=== PATIENT | female | born 1950 | race Caucasian/White ===

== ENCOUNTER → 2016-09-16 | Outpatient (REF) | payer MEDICARE, OTHER | LOC: M SFHCLERA 08:47 | PROVIDERS: ATTEND Family Medicine | DX: R76.8 Other specified abnormal immunological findings in serum (principal) | CPT/HCPCS: 85652; 86038; 86140; 86431; G0463 ==

== ENCOUNTER 2017-11-02 10:01 | Emergency (ER) | payer OTHER, MEDICARE ==
[2017-11-02 10:59] LABS: BASO # 0.1 10^3/uL (0.0-0.2); BASO % 0.4 % (0.0-1.0); EOS # 0.2 10^3/uL (0.0-0.50); HEMATOCRIT 46.3 % (36.0-47.0); HEMOGLOBIN 15.1 g/dl (12.0-15.5); IMMATURE GRANULOCYTE % 0.3 % (0-3.0); LYMPH # 2.9 10^3/uL (1.5-4.5); LYMPH % 25.2 % (24.0-44.0); MEAN CORPUSCULAR HGB CONC 32.6 g/dl (32.0-36.5); MEAN CORPUSCULAR VOLUME 91.9 fl (80.0-96.0); MONO # 0.6 10^3/uL (0.0-0.8); MONO % 5.3 % (0.0-5.0); NEUTROPHILS # 7.6 10^3/uL (1.8-7.7); NEUTROPHILS % 66.8 % (36.0-66.0); PLATELET COUNT, AUTOMATED 248 10^3/uL (150-450); RED BLOOD COUNT 5.04 10^6/uL (4.00-5.40); RED CELL DISTRIBUTION WIDTH 12.8 % (11.5-14.5); WHITE BLOOD COUNT 11.4 10^3/uL (4.0-10.0)
[2017-11-02 11:09] LABS: INR 1.01; PROTHROMBIN TIME 13.4 SECONDS (12.4-14.5)
[2017-11-02 11:10] LABS: PARTIAL THROMBOPLASTIN TIME 25.5 SECONDS (26.8-37.9)
[2017-11-02 11:34] LABS: ANION GAP 4 MEQ/L (8-16); BLOOD UREA NITROGEN 7 MG/DL (7-18); CALCIUM LEVEL 8.8 MG/DL (8.8-10.2); CARBON DIOXIDE LEVEL 31 MEQ/L (21-32); CHLORIDE LEVEL 107 MEQ/L (98-107); CREATININE FOR GFR 0.71 MG/DL (0.55-1.30); GLOMERULAR FILTRATION RATE > 60.0 (>45); GLUCOSE, FASTING 103 MG/DL (70-100); POTASSIUM SERUM 4.2 MEQ/L (3.5-5.1); SODIUM LEVEL 142 MEQ/L (136-145)
[2017-11-02] MEDS: PERCOCET 5MG/325MG TAB PO (12:00)
== END 2017-11-02 12:10 | disposition home or self-care (01) ==
LOC: M ED 10:01
DX: K64.4 Residual hemorrhoidal skin tags (principal); K92.1 Melena; R19.7 Diarrhea, unspecified; D72.829 Elevated white blood cell count, unspecified; R10.32 Left lower quadrant pain; N83.299 Other ovarian cyst, unspecified side; F41.9 Anxiety disorder, unspecified; F32.9 Major depressive disorder, single episode, unspecified; M32.9 Systemic lupus erythematosus, unspecified; Z72.0 Tobacco use; Z80.0 Family history of malignant neoplasm of digestive organs
CPT/HCPCS: 80048

== ENCOUNTER → 2017-12-03 | Outpatient (CLI) | payer OTHER ==
[~2017-12-03] MED LIST: GASTROGRAFIN SOLUTION 30ML (Q9963) As Ordered; ISOVUE-370 76% 100ML VIAL (Q9967) As Ordered
== END ==
LOC: M RAD 14:47
DX: K62.5 Hemorrhage of anus and rectum (principal); R10.32 Left lower quadrant pain; K57.30 Diverticulosis of large intestine without perforation or abscess without bleeding
CPT/HCPCS: Q9963

== ENCOUNTER 2017-12-16 09:21 | Day surgery (SDC) | payer OTHER ==
[~2017-12-16 09:21] MED LIST changes: -GASTROGRAFIN SOLUTION 30ML (Q9963) As Ordered; -ISOVUE-370 76% 100ML VIAL (Q9967) As Ordered; +LIDOCAINE 2% MDV 20 ML VIAL As Ordered; +PROPOFOL 200 MG/20 ML VIAL As Ordered
[2017-12-16] MEDS ORDERED: PROPOFOL 200 MG/20 ML VIAL As Ordered (11:33)
== END 2017-12-16 13:00 | disposition home or self-care (01) ==
LOC: M OPP 09:21
DX: K64.9 Unspecified hemorrhoids (principal); D12.2 Benign neoplasm of ascending colon; K62.1 Rectal polyp; K63.5 Polyp of colon; K63.89 Other specified diseases of intestine; K62.5 Hemorrhage of anus and rectum; F17.210 Nicotine dependence, cigarettes, uncomplicated; F41.9 Anxiety disorder, unspecified; F32.9 Major depressive disorder, single episode, unspecified; Z78.0 Asymptomatic menopausal state; Z80.0 Family history of malignant neoplasm of digestive organs; Z82.49 Family history of ischemic heart disease and other diseases of the circulatory system; Z83.3 Family history of diabetes mellitus
CPT/HCPCS: 45385

== ENCOUNTER → 2018-04-13 | Outpatient (REF) | payer OTHER ==
[2018-04-13 17:16] LABS: C REACTIVE PROTEIN QUANTITATIV < 0.30 MG/DL (0.00-0.30)
[2018-04-13 17:21] LABS: ALBUMIN 4.1 GM/DL (3.2-5.2); ALBUMIN/GLOBULIN RATIO 1.21 (1.00-1.93); ALKALINE PHOSPHATASE 95 U/L (45-117); ALT/SGPT 26 U/L (12-78); ANION GAP 6 MEQ/L (8-16); AST/SGOT 17 U/L (7-37); BILIRUBIN,TOTAL 0.5 MG/DL (0.2-1.0); BLOOD UREA NITROGEN 8 MG/DL (7-18); CARBON DIOXIDE LEVEL 31 MEQ/L (21-32); CHLORIDE LEVEL 103 MEQ/L (98-107); CREATININE FOR GFR 0.62 MG/DL (0.55-1.30); GLOMERULAR FILTRATION RATE > 60.0 (>45); GLUCOSE, FASTING 103 MG/DL (70-100); POTASSIUM SERUM 3.9 MEQ/L (3.5-5.1); SODIUM LEVEL 140 MEQ/L (136-145); TOTAL PROTEIN 7.5 GM/DL (6.4-8.2)
[2018-04-13 17:28] LABS: TOTAL 25(OH) VITAMIN D 35.6 NG/ML (30.0-100.0)
[2018-04-13 17:41] LABS: BASO % 0.3 % (0.0-1.0); EOS # 0.1 10^3/uL (0.0-0.50); EOS % 1.4 % (0.0-3.0); HEMOGLOBIN 14.3 g/dl (12.0-15.5); IMMATURE GRANULOCYTE % 0.2 % (0-3.0); LYMPH # 2.3 10^3/uL (1.5-4.5); LYMPH % 26.5 % (24.0-44.0); MEAN CORPUSCULAR HEMOGLOBIN 30.4 pg (27.0-33.0); MEAN CORPUSCULAR HGB CONC 31.8 g/dl (32.0-36.5); MEAN CORPUSCULAR VOLUME 95.5 fl (80.0-96.0); MONO # 0.5 10^3/uL (0.0-0.8); MONO % 5.7 % (0.0-5.0); NEUTROPHILS # 5.8 10^3/uL (1.8-7.7); NEUTROPHILS % 65.9 % (36.0-66.0); PLATELET COUNT, AUTOMATED 265 10^3/uL (150-450); RED BLOOD COUNT 4.71 10^6/uL (4.00-5.40); RED CELL DISTRIBUTION WIDTH 12.9 % (11.5-14.5); WHITE BLOOD COUNT 8.8 10^3/uL (4.0-10.0)
[2018-04-13 19:03] LABS: ERYTHROCYTE SEDIMENTATION RATE 19 mm/hr (0-30)
[2018-04-15 10:15] LABS: TISSUE TRANSGLUTAMINASE IgA <2 U/mL (0-3)
== END ==
LOC: M SFHCLERA 10:25
DX: E55.9 Vitamin D deficiency, unspecified (principal); K52.9 Noninfective gastroenteritis and colitis, unspecified
CPT/HCPCS: 80053

== ENCOUNTER → 2018-06-10 | Outpatient (REF) | payer OTHER ==
[~2018-06-10] MED LIST changes: -LIDOCAINE 2% MDV 20 ML VIAL As Ordered; +OXYC1TAB23 PO; -PROPOFOL 200 MG/20 ML VIAL As Ordered
[2018-06-16 00:09] LABS: FATS NEUTRAL Normal (.); FATS TOTAL Increased (.)
== END ==
LOC: M LAB REF 09:18
PROVIDERS: ATTEND Internal Medicine Gastroenterology
DX: R19.7 Diarrhea, unspecified (principal)

== ENCOUNTER → 2018-06-11 | Outpatient (CLI) | payer OTHER ==
[~2018-06-11] MED LIST changes: +E-Z-PAQUE 96% w/w SUSP 176GM BTL As Ordered ONE
[2018-06-11 09:22] LABS: BASO # 0.1 10^3/uL (0.0-0.2); BASO % 0.6 % (0.0-1.0); EOS # 0.2 10^3/uL (0.0-0.50); EOS % 1.8 % (0.0-3.0); HEMOGLOBIN 15.1 g/dl (12.0-15.5); LYMPH # 2.2 10^3/uL (1.5-4.5); LYMPH % 27.1 % (24.0-44.0); MEAN CORPUSCULAR HEMOGLOBIN 31.1 pg (27.0-33.0); MEAN CORPUSCULAR HGB CONC 32.8 g/dl (32.0-36.5); MEAN CORPUSCULAR VOLUME 94.7 fl (80.0-96.0); MONO # 0.5 10^3/uL (0.0-0.8); MONO % 6.2 % (0.0-5.0); NEUTROPHILS # 5.2 10^3/uL (1.8-7.7); NEUTROPHILS % 63.8 % (36.0-66.0); PLATELET COUNT, AUTOMATED 252 10^3/uL (150-450); RED BLOOD COUNT 4.86 10^6/uL (4.00-5.40); WHITE BLOOD COUNT 8.1 10^3/uL (4.0-10.0)
[2018-06-11 09:49] LABS: ALBUMIN 3.9 GM/DL (3.2-5.2); ALT/SGPT 15 U/L (12-78); BILIRUBIN,TOTAL 0.5 MG/DL (0.2-1.0); BLOOD UREA NITROGEN 13 MG/DL (7-18); CALCIUM LEVEL 8.8 MG/DL (8.8-10.2); CARBON DIOXIDE LEVEL 31 MEQ/L (21-32); CHLORIDE LEVEL 105 MEQ/L (98-107); CREATININE FOR GFR 0.76 MG/DL (0.55-1.30); FREE T4 0.94 NG/DL (0.76-1.46); GLOMERULAR FILTRATION RATE > 60.0 (>45); GLUCOSE, FASTING 94 MG/DL (70-100); POTASSIUM SERUM 4.1 MEQ/L (3.5-5.1); SODIUM LEVEL 139 MEQ/L (136-145)
--- NOTE | 2018-06-11 19:04 | REP ---
Small bowel follow-through The procedure was performed under the direct supervision of Dr. Houser. The images were reviewed with Dr. Houser. The server film shows no organomegaly or pathological masses. The intestinal gas pattern is nonspecific. Liquid barium was administered and the barium column was followed through the small bowel to the level of the terminal ileum. Small bowel transit time is approximately 30 minutes . During fluoroscopy gentle palpation shows all loops are freely movable and pliable. There are no fixed or angulated loops. The small bowel mucosal pattern is normal in course and caliber. There is no transition to suggest a partial small bowel obstruction. Spot filming of the terminal ileum shows it to be unremarkable. Impression: Small bowel follow-through examination within normal limits. 0.9 minutes of fluoro time was utilized for this procedure. Reviewed by MARGRET Rodrigez 06/11/2018 02:31 P Electronically Signed by Rayo Houser MD 06/11/2018 06:55 P
[2018-06-15 15:02] LABS: CHROMOGRANIN A <1 nmol/L (0-5); GASTRIN 16 pg/mL (0-115); TISSUE TRANSGLUTAMINASE IgA <2 U/mL (0-3)
== END ==
LOC: M LAB 08:32 → M RAD 08:32
PROVIDERS: ATTEND Physician Assistant Medical
DX: R19.7 Diarrhea, unspecified (principal)

== ENCOUNTER 2018-07-12 11:13 | Day surgery (SDC) | payer MEDICARE, OTHER ==
[~2018-07-12] VITALS: Ht 157.5 cm; Wt 61.0 kg
[~2018-07-12 11:13] MED LIST changes: -E-Z-PAQUE 96% w/w SUSP 176GM BTL As Ordered ONE; +IMOD2TAB16 PO; +LIDOCAINE 2% INJ 100 MG/5 ML SDV (FOR ANES.) As Ordered ONE; +META0.52 PO; +NS 1,000 ML IV ONE; +PROPOFOL 200 MG/20 ML VIAL As Ordered ONE
--- NOTE | 2018-07-12 13:58 | ROOR ---
Patient Name: Romy Thrasher Procedure Date: 07/12/2018 1:39 PM Date of : 1950 Age: 68 Room: [facility] Gender: Female Note Status: Finalized Procedure: Upper GI endoscopy Indications: Generalized abdominal pain, Diarrhea Providers: Zach RINCON MD Referring MD: Raymond GAGNON MD Requesting Provider: Medicines: Monitored Anesthesia Care Complications: No immediate complications. Procedure: Pre-Anesthesia Assessment: - The heart rate, respiratory rate, oxygen saturations, blood pressure, adequacy of pulmonary ventilation, and response to care were monitored throughout the procedure. The Endoscope was introduced through the mouth, and advanced to the second part of duodenum. The upper GI endoscopy was accomplished without difficulty. The patient tolerated the procedure well. Findings: The esophagus was normal. The stomach was normal. The examined duodenum was normal. Biopsies for histology were taken with a cold forceps in the first portion of the duodenum and in the second portion of the duodenum for evaluation of celiac disease. Impression: - Normal esophagus. - Normal stomach. - Normal examined duodenum. - Biopsies were taken with a cold forceps for evaluation of celiac disease. Recommendation: - Await pathology results. - Telephone endoscopist for pathology results in 2 weeks. Zach Rincon MD Zach RINCON MD 07/12/2018 1:57:45 PM This report has been signed electronically. Number of Addenda: 0 Note Initiated On: 07/12/2018 1:39 PM Estimated Blood Loss: Estimated blood loss: none.
--- NOTE | 2018-07-12 14:15 | ROOR ---
Patient Name: Romy Thrasher Procedure Date: 07/12/2018 1:40 PM Date of : 1950 Age: 68 Room: [facility] Gender: Female Note Status: Finalized Procedure: Colonoscopy Indications: Clinically significant diarrhea of unexplained origin, Change in bowel habits Providers: Zach RINCON MD Referring MD: Raymond GAGNON MD Requesting Provider: Medicines: Monitored Anesthesia Care Complications: No immediate complications. Procedure: Pre-Anesthesia Assessment: - The heart rate, respiratory rate, oxygen saturations, blood pressure, adequacy of pulmonary ventilation, and response to care were monitored throughout the procedure. The Colonoscope was introduced through the anus and advanced to 10 cm into the ileum. The colonoscopy was performed without difficulty. The patient tolerated the procedure well. The quality of the bowel preparation was good. Findings: The perianal and digital rectal examinations were normal. A 8 mm polyp was found in the mid sigmoid colon. The polyp was flat. The polyp was removed with a cold snare. Resection and retrieval were complete. Mild sigmoid diverticulosis and small internal hemorrhoids. The terminal ileum appeared normal. Biopsies for histology were taken with a cold forceps from the entire colon for evaluation of microscopic colitis. Impression: - One 8 mm polyp in the mid sigmoid colon, removed with a cold snare. Resected and retrieved. - Mild sigmoid diverticulosis and small internal hemorrhoids. - The colon was otherwise normal. - The examined portion (10 cm) of the terminal ileum was normal. - Biopsies were taken with a cold forceps from the entire colon for evaluation of microscopic colitis. Recommendation: - Await pathology results. - Telephone endoscopist for pathology results in 2 weeks. Zach Rincon MD Zach RINCON MD 07/12/2018 2:14:48 PM This report has been signed electronically. Number of Addenda: 0 Note Initiated On: 07/12/2018 1:40 PM Estimated Blood Loss: Estimated blood loss: none.
[2018-07-12] MEDS ORDERED: ACETAMINOPHEN 325 MG TAB PO ONE (15:00)
[2018-07-12 15:04] VITALS: BP 137/85
== END 2018-07-12 15:12 | disposition home or self-care (01) ==
LOC: M OPP 11:13
PROVIDERS: ATTEND Internal Medicine Gastroenterology
DX: K63.5 Polyp of colon (principal); D12.5 Benign neoplasm of sigmoid colon; R19.7 Diarrhea, unspecified; R19.4 Change in bowel habit; R10.84 Generalized abdominal pain; Z80.0 Family history of malignant neoplasm of digestive organs; Z80.3 Family history of malignant neoplasm of breast; Z80.41 Family history of malignant neoplasm of ovary

== ENCOUNTER → 2020-12-26 | Outpatient (REF) | payer MEDICARE ==
[~2020-12-26] MED LIST changes: -LIDOCAINE 2% INJ 100 MG/5 ML SDV (FOR ANES.) As Ordered ONE; -NS 1,000 ML IV ONE; -PROPOFOL 200 MG/20 ML VIAL As Ordered ONE
== END ==
LOC: M SFHCWAGY 13:02
PROVIDERS: ATTEND Nurse Practitioner Women's Health
DX: Z12.4 Encounter for screening for malignant neoplasm of cervix (principal)
CPT/HCPCS: 87624; G0123

== ENCOUNTER → 2021-01-30 | Outpatient (CLI) | payer MEDICARE ==
--- NOTE | 2021-01-30 10:31 | REP ---
INDICATION: M[facility]NICA DIAG MAMMO/N63.11 R BREAST LUMP; N63.11 R BREAST LUMP. Breast lump, right-side 11 o'clock position on clinician breast exam. COMPARISON: No comparison breast imaging. TECHNIQUE: A skin marker is affixed to the skin at the site where the clinician feels a palpable lump upper-outer quadrant right breast. The patient does not feel the lump. Routine views of the right breast are augmented by magnified focal spot compression images. 3D tomography is deployed. A true mediolateral view is included. Targeted right breast sonography is performed. This mammogram was interpreted with the aid of an FDA-approved computer-aided detection system. FINDINGS: Scattered fibroglandular elements are seen bilaterally. No suspicious or dominant density is seen. No microcalcification or architectural distortion is seen. No worrisome skin change is appreciated. 3-D tomosynthesis shows no additional finding. No abnormality is noted at the site of the palpable lump mammographically. The Volpara volumetric breast density pattern is B. Targeted right breast sonography. Mildly heterogeneous fibroglandular background echotexture is seen. No cyst, mass, acoustic shadowing or other significant sonographic finding. IMPRESSION: BIRADS/ACR category 1 negative mammographic and sonographic findings.. This patient's Tyrer-Cuzick lifetime breast cancer risk assessment score is 6.1%. The patient states she had a clinical breast exam in November of 2020. The patient letter being requested is M2. RECOMMENDATION: Repeat screening mammography recommended 1 year (for women over 40). Clinical follow-up. <Electronically signed by Vic Houser > 01/30/21 [id number]
== END ==
LOC: M WHC 08:54
PROVIDERS: ATTEND Nurse Practitioner Women's Health
DX: N63.11 Unspecified lump in the right breast, upper outer quadrant (principal)
CPT/HCPCS: 76642; 77066; G0279

== ENCOUNTER → 2021-03-15 | Outpatient (REF) | payer MEDICARE ==
[2021-03-19 10:10] LABS: CALPROTECTIN STOOL 36 ug/g (0-120)
== END ==
LOC: M LAB REF 10:53
PROVIDERS: ATTEND Surgery
DX: K63.5 Polyp of colon (principal)

== ENCOUNTER → 2021-03-15 | Outpatient (CLI) | payer MEDICARE | LOC: M LABSMTC 09:19 | PROVIDERS: ATTEND Anesthesiology | DX: Z01.812 Encounter for preprocedural laboratory examination (principal); Z20.822 Contact with and (suspected) exposure to COVID-19 ==

== ENCOUNTER 2021-03-20 09:55 | Day surgery (SDC) | payer MEDICARE ==
[~2021-03-20] VITALS: Ht 154.9 cm; Wt 57.3 kg
[~2021-03-20 09:55] MED LIST changes: +NS 1,000 ML IV ONE
--- OUTSIDE RECORDS SUMMARY | 2021-03-20 10:00 | CCD | Continuity of Care Document ---
Author Author Romy DUVALL MD Organization Unknown Address [address] [place] [id number] Phone [phone] Care Team Providers Care Grape Picker Name Role Phone Matt Duvall MD [facility] [phone] No PCP [facility] Unavailable Problems Description No Active Problems Social History Type Date Description Comments Sex Unknown ETOH Use Denies alcohol use Recreational Drug Use Denies Drug Use Tobacco Use Start: Unknown Patient is a current smoker, smo kes every day / PPD X 20 YRS Allergies, Adverse Reactions, Alerts Description No Known Drug Allergies Medications Active Medications SIG Qnty Indications Ordering Provide r Date Trazodone HCL 100mg Tablets Take 1 Tablet By Mouth Before Bedtime Unknown 00 Immunizations Description No Information Available Vital Signs Date Vital Result Comment 01/01/2021 1:05pm BP Systolic 110 mmHg BP Diastolic 75 mmHg Heart Rate 69 /min Height 61 inches 5'1" Weight 130.12 lb BMI (Body Mass Index) 24.6 kg/m2 [place] Body Weight 105 lb Weight 59.025 kg BSA (Body Surface Area) 1.57 m2 05/20/2018 11:39am BP Systolic 112 mmHg BP Diastolic 70 mmHg Height 61 inches 5'1" Weight 138.00 lb BMI (Body Mass Index) 26.1 kg/m2 [place] Body Weight 105 lb Weight 62.597 kg BSA (Body Surface Area) 1.61 m2 Results Description No Information Available Procedures Description No Information Available Medical Devices Description No Information Available Encounters Description No Information Available Assessments Description No Information Available Plan of Treatment 05/20/2018 - Zach Rincon MD* R19.7 Diarrhea, unspecified * K62.5 Hemorrhage of anus and rectum * R10.13 Epigastric pain * R93.3 Abnormal findings on diagnostic imaging of other parts of di* New Medication:* Imodium A-D 2 mg * Clenpiq 10-3.5-12 mg-GM -GM/160ML * New Labs:* Tissue Transglutaminase Iga, Ordered: 05/20/18 * Immunoglobulin A, Ordered: 05/20/18 * FT4&TSH Panel, Ordered: 05/20/18 * CBC With Differential, Ordered: 05/20/18 * Comprehensive Metabolic Profil, Ordered: 05/20/18 * Gastrin, Ordered: 05/20/18 * Chromogranin A, Ordered: 05/20/18 * New Orders:* Colonoscopy/Terminal Ileoscopy/random biopsy, Ordered: 05/20/18 * Endoscopy, Ordered: 05/20/18 Functional Status Description No Information Available Mental Status Description No Information Available Referrals Description No Information Available
--- OUTSIDE RECORDS SUMMARY | 2021-03-20 10:00 | CCD ---
Author Author [facility] Organization [facility] Address Unknown Phone Unavailable Care Team Providers Care Steward/Stewardess Chief Cargo Vessel Name Role Phone Geronimo Maame Unavailable PROBLEMS Type Condition ICD9-CM Code GPD55-ND Code Onset Dates Condition S tatus W/U Status Risk SNOMED Code Notes Problem Diarrhea, unspecified type R19.7 Active confirmed 75178024 Problem Anxiety F41.9 Active confirmed 71304441 Problem Cataract of both eyes, unspecified cataract type H 26.9 Active confirmed 77231488 Problem Influenza vaccination declined Z28.21 Active confir med 287598322 Problem Vitamin D deficiency E55.9 Active confirmed 83356218 Problem Insomnia, unspecified type G47.00 Active confirmed 129909837 Problem Tobacco use disorder F17.200 Active confirmed 163559981 Problem Cataract, unspecified cataract type, unspecified lateralit y H26.9 Active confirmed [id number] ALLERGIES No Known Allergies ENCOUNTERS from 1950 to 2020-12-27 Encounter Location Date Provider Diagnosis [facility] [address] [place] [address] [place] [address] Nov, Maame Melton Routine gynecologica l examination Z01.419 ; Cervical cancer screening Z12.4 ; Postmenopausal status Z78.0 ; History of loop electrical excision procedure (LEEP) Z98.890 and Breast lump on right side at 11 o'clock position N63.11 IMMUNIZATIONS Vaccine Route Administration Date Status Influenza 18 yrs & older Flublok Unknown Jul 27, 2018 Refused Influenza 18 yrs & older Flublok Unknown Apr 13, 2018 Refused SOCIAL HISTORY Tobacco Use: Social History Observation Description Date Details (start date - stop date) Current Smoker Sex Assigned At : Social History Observation Description Sex Assigned At Unknown Education: Question Answer Notes Level of Education: High School Audit Question Answer Notes Total Score: 0 Interpretation: Alcohol Education Language: Question Answer Notes Languages spoken: Senegalese Anabaptism: Question Answer Notes Anabaptism [employer] Worship Drug and Alcohol Question Answer Notes Total Score: 0 Interpretation: No problems reported Alcohol Screening: Question Answer Notes Did you have a drink containing alcohol in the past year? No Points 0 Interpretation Negative Tobacco Use: Question Answer Notes Are you a: current smoker Smoking Cessation Information Given 02/21/2019 Patient counseled on the dangers of tobacco use and urged to quit: 02/21/2019 How many cigarettes a day do you smoke? 6-10 Are you interested in quitting? Thinking about quitting Counseled the patient on smoking cessation, education provid ed 02/21/2019 REASON FOR REFERRAL No Information VITAL SIGNS Weight 131.8 lbs Nov, Height 61 in Nov, BMI 24.9 kg/m2 Nov, Blood pressure systolic 142 mm Hg Nov, Blood pressure diastolic 78 mm Hg Nov, MEDICATIONS Medication SIG (Take, Route, Frequency, Duration) Notes Start Da te End Date Status Metamucil Not-Taking Loperamide HCl 2 MG 1 capsule as needed for diar aspen Orally 2 times a day for 30 days Jan, Active Xanax 0.25 MG 1 tablet Orally hs prn Not-Taking Probiotic - Orally Not-Taking Trazodone 100 100mg 1 tab oral before bedtime for 90 day(s) Active PROCEDURES No Information RESULTS No Results REASON FOR VISIT ANNUAL MEDICAL (GENERAL) HISTORY Type Description Date Medical History History of migraine Medical History depression /anxiety/panic attacks Medical History endometriosis Medical History lupus, repeat GUNNAR negative Medical History insomnia, Trazodone Medical History Diarrhea, IBS? Surgical History ovary removed for a cyst at age 21 Surgical History D&C multiple Surgical History lasik Surgical History biopsy of stomach and colon - Dr Rincon 07/2018 Goals Section No Information Health Concerns No Information MEDICAL EQUIPMENT No Information MENTAL STATUS No Information FUNCTIONAL STATUS No Information ASSESSMENTS Encounter Date Diagnosis Assessment Notes Treatment Notes Treatm ent Clinical Notes Nov, Routine gynecological examination (ICD-10 - Z01. 419) Pt to report any episodes of pmb or pelvic pain. Advise regular physical activity including weight bearing exercise most days of the week. Reviewed calcium rich foods. Nov, Cervical cancer screening (ICD-10 - Z12.4) Reviewed ASCCP guidelines for pap screening and frequency, reviewed utility of HPV testing as well and when next pap will be due Nov, Postmenopausal status (ICD-10 - Z78.0) Nov, History of loop electrical e xcision procedure (LEEP) (ICD-10 - Z98.890) Nov, Breast lump on right side at 11 o'clock position (ICD-10 - N63.11) PLAN OF TREATMENT Treatment Notes Assessment Notes Clinical Notes Routine gynecological examination Pt to report any episodes of pmb or pelvic pain. Advise regular physical activity including weight bearing exercise most days of the week. Reviewed calcium rich foods. Cervical cancer screening Reviewed ASCCP guidelines for pap screening and frequency, reviewed utility of HPV testing as well and when next pap will be due Treatment Notes Test Name Order Date PAP REQUEST FOR SERVICE 2020-12-26 [facility] DIAGNOSTIC BILATERAL MAMMO (Ultrasound if indicat ed) 2020-12-26 Next Appt Details prn Reason:f/u dx imaging Follow Up:prnf/u dx imaging Insurance Providers Payer Name Payer Address Payer Phone Insured Name Patient Relati onship to Insured Coverage Start Date Coverage End Date AETNA MEDICARE A[employer]NA [employer] INSURANCE Red Dot Payment [address] [facility] [id number] LAYA ACOSTA
--- OUTSIDE RECORDS SUMMARY | 2021-03-20 10:00 | CCD | Continuity of Care Document ---
Author Author Romy DUVALL MD Organization Unknown Address [address] [place] [address] Phone [phone] Care Team Providers Care County Commissioner Name Role Phone Matt Duvall MD [facility] [phone] No PCP [facility] Unavailable Problems Description No [...] lb BMI (Body Mass Index) 24.6 kg/m2 [place] Body Weight 105 lb Weight 59.025 kg BSA (Body Surface Area) 1.57 m2 05/20/2018 11:39am BP Systolic 112 mmHg BP Diastolic 70 mmHg Height 61 inches 5'1" Weight 138.00 lb BMI (Body Mass Index) 26.1 kg/m2 [place] Body Weight 105 lb Weight 62.597 kg BSA (Body Surface Area) 1.61 m2 Results Description No Information Available Procedures Date Code Description Status 01/01/2021 40852 Office/Outpatient Established Lo w MDM 20-29 Min Completed Medical Devices Description No Information Available Encounters Type Date Location Provider Dx Diagnosis Office Visit 01/01/2021 1:00p [facility] Edu romeo Duvall MD R19.7 Diarrhea, unspecified Z86.010 Personal history of colonic polyps R10.32 Left lower quadrant pain Assessments Date Code Description Provider 01/01/2021 R19.7 Diarrhea, unspecified Matt Duvall MD 01/01/2021 Z86.010 Personal history of colonic poly ps Matt Duvall MD 01/01/2021 R10.32 Left lower quadrant pain Matt Duvall MD Plan of Treatment Future Appointment(s):* 04/03/2021 10:00 am - GABRIELA García at [facility] * 03/20/2021 11:00 am - Matt Duvall MD at [facility] 01/01/2021 - Matt Duvall MD* R19.7 Diarrhea, unspecified* Comments:* She has been extensively worked up for the diarrhea and has been ruled out for i nflammatory bowel disease, gluten sensitivity, infection. She intermittently uses the Imodium during bouts of diarrhea and this is since worked for her. * Z86.010 Personal history of colonic polyps* Comments:* We will schedule her for colonoscopy. I reviewed with her her prior colonoscopies as well as prior bowel preps. She does not recall any problems with the bowel prep or with a colonoscopy that was done previously. Last colonoscopy 2018.Discussed how to perform a split dose bowel prep. * R10.32 Left lower quadrant pain* Comments:* I did not detect any hernia. She reports what seems to be more abdominal wall pain though this could be also gas bloat type of pain. This seems to be stable. Functional Status Description No Information Available Mental Status Description No Information Available Referrals Description No Information Available
--- OUTSIDE RECORDS SUMMARY | 2021-03-20 10:00 | CCD ---
Author Author [facility] Organization [facility] Address Unknown Phone Unavailable Care Team Providers Care Banquet Manager Name Role Phone Felicity PAYNE MD Unavailable Unavailable Felicity PAYNE MD Unavailable Unavailable Felicity PAYNE MD Unavailable Unavailable Felicity PAYNE MD Unavailable Unavailable Felicity PAYNE MD Unavailable Unavailable Felicity PAYNE MD Unavailable Unavailable Felicity PAYNE MD Unavailable Unavailable Felicity PAYNE MD Unavailable Unavailable Felicity PAYNE MD Unavailable Unavailable Felicity PAYNE MD Unavailable Unavailable Felicity PAYNE MD Unavailable Unavailable Felicity PAYNE MD Unavailable Unavailable Felicity PAYNE MD Unavailable Unavailable Felicity PAYNE MD Unavailable Unavailable Felicity PAYNE MD Unavailable Unavailable Felicity PAYNE MD Unavailable Unavailable Felicity PAYNE MD Unavailable Unavailable Felicity PAYNE MD Unavailable Unavailable Felicity PAYNE MD Unavailable Unavailable BARAYUGA, B CHRIS MD Unavailable Unavailable BARAYUGA, B CHRIS MD Unavailable Unavailable BARAYUGA, B CHRIS MD Unavailable Unavailable BARAYUGA, B CHRIS MD Unavailable Unavailable BARAYUGA, B CHRIS MD Unavailable Unavailable BARAYUGA, B CHRIS MD Unavailable Unavailable BARAYUGA, B CHRIS MD Unavailable Unavailable BARAYUGA, B CHRIS MD Unavailable Unavailable BARAYUGA, B CHRIS MD Unavailable Unavailable BARAYUGA, B CHRIS MD Unavailable Unavailable BARAYUGA, B CHRIS MD Unavailable Unavailable BARAYUGA, B CHRIS MD Unavailable Unavailable BARAYUGA, B CHRIS MD Unavailable Unavailable BARAYUGA, B CHRIS MD Unavailable Unavailable BARAYUGA, B CHRIS MD Unavailable Unavailable Re-disclosure Warning The records that you are about to access may contain information from federally-assisted alcohol or drug abuse programs. If such information is present, then the following federally mandated warning applies: This information has been disclosed to you from records protected by federal confidentiality rules (42 CFR part 2). The federal rules prohibit you from making any further disclosure of this information unless further disclosure is expressly permitted by the written consent of the person to whom it pertains or as otherwise permitted by 42 CFR part 2. A general authorization for the release of medical or other information is NOT sufficient for this purpose. The Federal rules restrict any use of the information to criminally investigate or prosecute any alcohol or drug abuse patient.The records that you are about to access may contain highly sensitive health information, the redisclosure of which is protected by Article 27-F of the [facility] Public Health law. If you continue you may have access to information: Regarding HIV / AIDS; Provided by facilities licensed or operated by the [facility] Office of Mental Health; or Provided by the [facility] Office for People With Developmental Disabilities. If such information is present, then the following [facility] mandated warning applies: This information has been disclosed to you from confidential records which are protected by state law. State law prohibits you from making any further disclosure of this information without the specific written consent of the person to whom it pertains, or as otherwise permitted by law. Any unauthorized further disclosure in violation of state law may result in a fine or usp sentence or both. A general authorization for the release of medical or other information is NOT sufficient authorization for further disc losure. Family History Family Member Name Family Member Gender Family Member Status Date o f Status Description Data Source(s) Unknown Unknown Problem MEDENT ([facility], ) Encounters Encounter Providers Location Date Indications Data Source(s ) Outpatient Attender: CHRIS Garcia/Doni/Eric/ Sergey 01/01/2021 01:00:00 PM EDT MED[facility] ([facility] Outpatient [address] [facility] [place] [address] 12/26/2020 12:00:00 AM EDT eCW1 ([facility]) Unknown [address] [facility] [place] [address] 05/10/2020 12:00:00 AM EST eCW1 ([facility]) Medications Medication Brand Name Start Date Product Form Dose Route Admi nistrative Instructions Pharmacy Instructions Status Indications Reaction Description Data Source(s) SUPREP BOWEL PREP KIT 17.5-3.13-1.6 gram SODIUM, POTASSIUM,M AG SULFATES 03/11/2021 12:00:00 AM EDT recon soln 354 TAKE PER DOCTOR'S BOWEL PREP INSTRUCTIONS TAKE PER DOCTOR'S BOWEL PREP INSTRUCTIONS SOLD: 03/18/2021 Bita [facility] Trazodone Hydrochloride 100 MG Oral Tablet TRAZODONE HCL 05/26/2020 12:00:00 AM EST tablet 90 TAKE 1 TABLET BY MOUTH BEFOR E BEDTIME TAKE 1 TABLET BY MOUTH BEFORE BEDTIME SOLD: 09/15/2020 [facility] Trazodone Hydrochloride 100 MG Oral Tablet TRAZODONE HCL 05/26/2020 12:00:00 AM EST tablet 90 TAKE 1 TABLET BY MOUTH BEFOR E BEDTIME TAKE 1 TABLET BY MOUTH BEFORE BEDTIME SOLD: 05/27/2020 [facility] Trazodone Hydrochloride 100 MG Oral Tablet TRAZODONE HCL 12/09/2019 12:00:00 AM EDT tablet 90 TAKE ONE TABLET BY MOUTH LORENZO RY DAY BEFORE BEDTIME TAKE ONE TABLET BY MOUTH EVERY DAY BEFORE BEDTIME SOLD: 03/06/2020 [facility] Insurance Providers Payer name Policy type / Coverage type Policy ID Covered alliance party ID Covered alliance party's relationship to zimmer Policy Zimmer Plan Information TODAYS OPTIONS [id number] SP [id number] TODAYS OPTIONS [id number] SP [id number] HUMANA GOLD [id number] SP [id number] AETNA MEDICARE [id number] SP [id number] ANSI-Medicare Part B [id number] ANSI-Medicare Part B [id number] HUMANA GOLD [id number] SP [id number] ANSI-Medicare Part B [id number] ANSI-Medicare Part B [id number] HUMANA GOLD [id number] SP [id number] TODAYS OPTIONS [id number] SP [id number] Today's Options Medicare Commercial [id number] Self [id number] ANSI-Medicare Part B [id number] Today's Options Medicare Commercial [id number] Self [id number] ANSI-Medicare Part B [id number] Today's Options Medicare Commercial [id number] Self [id number] TODAYS OPTIONS [id number] SP [id number] Today's Options Medicare Commercial [id number] Self [id number] MEDICARE [id number] SP [id number] A GHI FEDERAL O [id number] S [id number] MEDICARE C [id number] S [id number] A [facility] [id number] SP [id number] GHI FEDERAL [id number] SP [id number] [facility]/GHI [facility] O [id number] S [id number] [facility] [id number] 18 [id number] [facility] [id number] 18 [id number] MEDICARE PART A-CLINIC [id number] 18 [id number] MEDICARE -RECURRING [id number] 18 [id number] MEDICARE PART B-PHYSICIAN [id number] 18 [id number] [facility]-RECURRING [id number] 18 [id number] AETNA MEDICARE [id number] SP [id number] MEDICARE -O/P [id number] 18 [id number] AETNA MEDICARE [id number] SP [id number] AETNA MEDICARE [id number] SP [id number] Aetna Other 0 [id number] Self 0 Problems, Conditions, and Diagnoses No Information Surgeries/Procedures Procedure Description Date Indications Data Source(s) OFFICE OUTPATIENT VISIT 15 MINUTES 01/01/2021 12:00:00 AM EDT SERGE ([facility], ) Results No Information Social History Code Duration Value Status Description Data Source(s ) Smoking 12/26/2020 12:00:00 AM EDT Current Smoker completed Curre nt Smoker eCW1 ([facility]) Vital Signs ID Date Data Source UNK Name Value Range Interpretation Code Description Data Source(s) [place] body weight 105 [lb_av] 105 [lb_av] ORALIA Casiano ([facility], ) Systolic blood pressure 110 mm[Hg] 110 mm[Hg] M ARJUN ([facility]) Body weight 59.025 kg 59.025 kg SERGE ([facility]) Body surface area Derived from formula 1.57 m2 1.57 m2 [facility] ([facility]) Diastolic blood pressure 75 mm[Hg] 75 mm[Hg] [facility] ([facility]) Heart rate 69 /min 69 /min [facility] ([facility]) Body height 61 [in_i] 61 [in_i] [facility] 5'1" Body weight 130.12 [lb_av] 130.12 [lb_av] MEDEN T ([facility]) Body mass index (BMI) [Ratio] 24.6 kg/m2 24.6 k g/m2 [facility] ([facility]) Body weight 131.8 [lb_av] 131.8 [lb_av] W1 ([facility]) Body height 61 [in_i] 61 [in_i] W1 ([facility]) Body mass index (BMI) [Ratio] 24.9 kg/m2 24.9 k g/m2 eCW1 ([facility]) Systolic blood pressure 142 mm[Hg] 142 mm[Hg] e CW1 ([facility]) Diastolic blood pressure 78 mm[Hg] 78 mm[Hg] eCW1 ([facility])
[2021-03-20] MEDS ORDERED: LIDOCAINE 2% 100MG/5ML SDV (FOR ANES.) As Ordered ONE (10:20)
[2021-03-20] MEDS ORDERED: propofoL 200 MG/20 ML VIAL As Ordered ONE ×2 (10:20→11:04)
--- NOTE | 2021-03-20 10:58 | ROOR ---
Patient Name: Romy Thrasher Procedure Date: 03/20/2021 10:14 AM Date of : 1950 Age: 71 Room: [facility] Gender: Female Note Status: Finalized Procedure: Colonoscopy Indications: Abdominal pain in the left lower quadrant, Chronic diarrhea Providers: Matt Duvall MD Referring MD: 1. NO/Unknown PCP 1. NO/Unknown PCP, Admin., Matt Duvall MD Requesting Provider: Medicines: Monitored Anesthesia Care Complications: No immediate complications. Procedure: Pre-Anesthesia Assessment: - Prior to the procedure, a History and Physical was performed, and patient medications and allergies were reviewed. The patient is competent. The risks and benefits of the procedure and the sedation options and risks were discussed with the patient. All questions were answered and informed consent was obtained. Patient identification and proposed procedure were verified by the physician, the nurse and the anesthesiologist in the endoscopy suite. Mental Status Examination: alert and oriented. Airway Examination: normal oropharyngeal airway and neck mobility. Respiratory Examination: clear to auscultation. CV Examination: normal. Prophylactic Antibiotics: The patient does not require prophylactic antibiotics. Prior Anticoagulants: The patient has taken no previous anticoagulant or antiplatelet agents. ASA Grade Assessment: III - A patient with severe systemic disease. After reviewing the risks and benefits, the patient was deemed in satisfactory condition to undergo the procedure. The anesthesia plan was to use monitored anesthesia care (MAC). Immediately prior to administration of medications, the patient was re-assessed for adequacy to receive sedatives. The heart rate, respiratory rate, oxygen saturations, blood pressure, adequacy of pulmonary ventilation, and response to care were monitored throughout the procedure. The physical status of the patient was re-assessed after the procedure. The Colonoscope was introduced through the anus and advanced to the cecum, identified by appendiceal orifice and ileocecal valve. The colonoscopy was performed without difficulty. The patient tolerated the procedure well. The quality of the bowel preparation was adequate to identify polyps. Findings: Hemorrhoids were found on perianal exam. Segmental mild inflammation characterized by congestion (edema) was found in the sigmoid colon. This was biopsied with a cold forceps for histology. Estimated blood loss was minimal. There is no endoscopic evidence of bleeding, diverticula, mass, polyps, stenosis, stricture or ulcerations in the entire colon. Biopsies for histology were taken with a cold forceps from the cecum, ascending colon, right colon, left colon, transverse colon, descending colon and rectum for evaluation of microscopic colitis. Estimated blood loss was minimal. For hemostasis, two hemostatic clips were successfully placed (MR conditional) in the descending colon. There was no bleeding at the end of the procedure. No additional abnormalities were found on retroflexion. Impression: - Hemorrhoids found on perianal exam. - Segmental mild inflammation was found in the sigmoid colon secondary to colitis. Biopsied. - Biopsies were taken with a cold forceps from the cecum, ascending colon, right colon, left colon, transverse colon, descending colon and rectum for evaluation of microscopic colitis. - Two hemostatic clips were successfully placed (MR conditional) in the descending colon. Recommendation: - Discharge patient to home (ambulatory). - High fiber diet indefinitely. - Await pathology results. - Repeat colonoscopy in 5 years for surveillance. Procedure Code(s): --- Professional --- 47303, 59, Colonoscopy, flexible; with control of bleeding, any method 11622, Colonoscopy, flexible; with biopsy, single or multiple Diagnosis Code(s): --- Professional --- K64.9, Unspecified hemorrhoids K52.9, Noninfective gastroenteritis and colitis, unspecified R10.32, Left lower quadrant pain CPT copyright 2019 [employer]. All rights reserved. The codes documented in this report are preliminary and upon irrigation manager review may be revised to meet current compliance requirements. Matt Duvall MD Matt Duvall MD 03/20/2021 10:58:21 AM Electronically signed by Matt Duvall MD Number of Addenda: 0 Note Initiated On: 03/20/2021 10:14 AM Estimated Blood Loss: Estimated blood loss was minimal.
[2021-03-20 11:20] VITALS: BP 131/72
== END 2021-03-20 11:29 | disposition home or self-care (01) ==
LOC: M OPP 09:55
PROVIDERS: ATTEND Surgery
DX: Z12.11 Encounter for screening for malignant neoplasm of colon (principal); Z86.010 Personal history of colon polyps; K52.9 Noninfective gastroenteritis and colitis, unspecified; K64.8 Other hemorrhoids; R10.32 Left lower quadrant pain; Z79.899 Other long term (current) drug therapy; F17.210 Nicotine dependence, cigarettes, uncomplicated

== ENCOUNTER 2021-08-08 13:48 | Emergency (ER) | payer MEDICARE ==
[~2021-08-08] VITALS: Ht 154.9 cm; Wt 58.6 kg
[~2021-08-08 13:48] MED LIST changes: -NS 1,000 ML IV ONE
[2021-08-08] MEDS ORDERED: MECLIZINE 25 MG TABLET PO ONE ×2 (16:10→21:25)
[2021-08-08] MEDS ORDERED: NS 1,000 ML IV ONE (16:10)
[2021-08-08 17:05] LABS: BASO # 0.1 10^3/uL (0.0-0.2); BASO % 0.5 % (0.0-1.0); EOS # 0.1 10^3/uL (0.0-0.5); EOS % 1.1 % (0.0-3.0); HEMATOCRIT 43.9 % (36.0-47.0); HEMOGLOBIN 14.3 g/dl (12.0-15.5); LYMPH # 2.8 10^3/uL (1.5-5.0); MEAN CORPUSCULAR HEMOGLOBIN 29.5 pg (27.0-33.0); MEAN CORPUSCULAR HGB CONC 32.6 g/dl (32.0-36.5); MEAN CORPUSCULAR VOLUME 90.7 fl (80.0-96.0); MONO # 0.7 10^3/uL (0.0-0.8); MONO % 5.5 % (2.0-8.0); NEUTROPHILS # 8.5 10^3/uL (1.5-8.5); NEUTROPHILS % 69.3 % (36.0-66.0); PLATELET COUNT, AUTOMATED 317 10^3/uL (150-450); RED BLOOD COUNT 4.84 10^6/uL (4.00-5.40); WHITE BLOOD COUNT 12.3 10^3/uL (4.0-10.0)
[2021-08-08 17:23] LABS: INR 0.92; PROTHROMBIN TIME 12.8 SECONDS (12.7-14.5)
[2021-08-08 17:24] LABS: PARTIAL THROMBOPLASTIN TIME 28.1 SECONDS (25.9-37.0)
[2021-08-08 17:26] LABS: D-DIMER QUANT 413.42 ng/ml (<500)
[2021-08-08 17:30] LABS: BLOOD UREA NITROGEN 16 MG/DL (7-18); CALCIUM LEVEL 9.3 MG/DL (8.8-10.2); CARBON DIOXIDE LEVEL 32 MEQ/L (21-32); CHLORIDE LEVEL 108 MEQ/L (98-107); FREE T4 1.08 NG/DL (0.76-1.46); GLOMERULAR FILTRATION RATE > 60.0 (>45); GLUCOSE, FASTING 92 MG/DL (70-100); MAGNESIUM LEVEL 2.1 MG/DL (1.8-2.4); POTASSIUM SERUM 4.4 MEQ/L (3.5-5.1); SODIUM LEVEL 142 MEQ/L (136-145)
[2021-08-08] MEDS ORDERED: MECL1TAB31 PO (21:06)
[2021-08-08] MEDS ORDERED: ONDA4TAB6 PO (21:18)
[2021-08-08] MEDS ORDERED: ONDANSETRON 4 MG ORAL DISINTEGRATING TAB PO ONE (21:25)
[2021-08-08 22:39] VITALS: BP 176/91
== END 2021-08-08 22:49 | disposition home or self-care (01) ==
LOC: M ED 13:48
DX: R42 Dizziness and giddiness (principal); F33.9 Major depressive disorder, recurrent, unspecified; F41.9 Anxiety disorder, unspecified; Z87.891 Personal history of nicotine dependence

== ENCOUNTER → 2021-09-05 | Outpatient (CLI) | payer MEDICARE ==
[~2021-09-05] MED LIST changes: +MECL1TAB31 PO; +ONDA4TAB6 PO
== END ==
LOC: M RAD 11:16
PROVIDERS: ATTEND Family Medicine
DX: R10.30 Lower abdominal pain, unspecified (principal)

== ENCOUNTER → 2022-12-31 | Outpatient (CLI) | payer OTHER ==
[2022-12-31 13:38] LABS: FREE T4 1.08 NG/DL (0.89-1.76); THYROID STIMULATING HORMONE 1.732 uIU/ML (0.55-4.78)
== END ==
LOC: M LAB 12:33
PROVIDERS: ATTEND Family Medicine
DX: E61.8 Deficiency of other specified nutrient elements (principal); Z79.899 Other long term (current) drug therapy

== ENCOUNTER → 2024-10-03 | Outpatient (CLI) | payer MEDICARE ==
[~2024-10-03] MED LIST changes: +MECL-209 PO; -MECL1TAB31 PO; +ONDA-282 PO; -ONDA4TAB6 PO
[2024-10-03 13:04] LABS: BASO # 0.1 10^3/uL (0.0-0.2); BASO % 0.9 % (0.0-1.0); EOS # 0.5 10^3/uL (0.0-0.5); HEMATOCRIT 44.6 % (36.0-47.0); HEMOGLOBIN 14.5 g/dl (12.0-15.5); LYMPH # 2.6 10^3/uL (1.5-5.0); LYMPH % 25.7 % (24.0-44.0); MEAN CORPUSCULAR HEMOGLOBIN 30.3 pg (27.0-33.0); MEAN CORPUSCULAR HGB CONC 32.5 g/dl (32.0-36.5); MEAN CORPUSCULAR VOLUME 93.1 fl (80.0-96.0); MONO # 0.6 10^3/uL (0.0-0.8); MONO % 6.4 % (2.0-8.0); NEUTROPHILS # 6.1 10^3/uL (1.5-8.5); NEUTROPHILS % 61.6 % (36.0-66.0); PLATELET COUNT, AUTOMATED 273 10^3/uL (150-450); RED BLOOD COUNT 4.79 10^6/uL (4.00-5.40); WHITE BLOOD COUNT 9.9 10^3/uL (4.0-10.0)
[2024-10-03 13:18] LABS: HEMOGLOBIN A1c 5.2 % (4.0-6.0)
[2024-10-03 13:59] LABS: TOTAL 25(OH) VITAMIN D 34.1 NG/ML (20.0-100.0)
[2024-10-03 14:00] LABS: FOLATE 13.81 NG/ML (>5.4)
[2024-10-03 14:01] LABS: THYROID STIMULATING HORMONE 3.735 uIU/ML (0.55-4.78)
[2024-10-03 14:05] LABS: FREE T4 1.11 NG/DL (0.89-1.76)
[2024-10-03 14:06] LABS: ALBUMIN 3.7 G/DL (3.2-5.2); BILIRUBIN,TOTAL 0.4 MG/DL (0.3-1.2); CALCIUM LEVEL 9.5 MG/DL (8.3-10.6); CREATININE FOR GFR 0.77 MG/DL (0.55-1.30); GLOMERULAR FILTRATION RATE 81.9 (>39); PERCENT SATURATION 30.6 % (13.2-45.0); POTASSIUM SERUM 4.9 MMOL/L (3.5-5.1); TOTAL PROTEIN 7.1 G/DL (5.7-8.2)
== END ==
LOC: M LAB 11:56
PROVIDERS: ATTEND Family Medicine
DX: R20.0 Anesthesia of skin (principal); K58.0 Irritable bowel syndrome with diarrhea; F41.9 Anxiety disorder, unspecified; G47.00 Insomnia, unspecified; E55.9 Vitamin D deficiency, unspecified; G25.81 Restless legs syndrome; Z79.899 Other long term (current) drug therapy